=== PATIENT | male | born 1975 | race Hispanic/Latino ===

== ENCOUNTER 2020-04-28 08:00 | Outpatient (CLI) | payer BC ==
--- NOTE | 2020-04-28 10:18 | CT ---
CT ABDOMEN WITH CONTRAST CT PELVIS WITH CONTRAST: DATE: 04/28/2020 TIME: 0824 HOURS HISTORY: 45-year-old male with left upper quadrant abdominal pain for 2 months. COMPARISON: 12/28/2017. TECHNIQUE: IV injection of iodinated contrast media: administered Oral contrast media: administered FINDINGS: Small umbilical hernia containing a very short segment of small bowel. No associated fat stranding. P reviously, this was only a fat-containing hernia. Bilateral kidneys, abdominal aorta, urinary bladder, adrenals, pancreas, spleen, and liver are normal . No appendicitis. No colonic diverticulitis, small bowel dilation, ascites, or pneumoperitoneum. Gloria g bases are grossly clear. 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 Other than the small umbi lical hernia, no interval change. IMPRESSION: 1. No acute pathology. 2. Small umbilical hernia. 3. Lower lumbar spondylosis. 4. Status post cholecystectomy. 5. Otherwise negative. MAGEN Donald POS: [facility]LENA
[2020-04-28] MEDS ORDERED: Iopamidol 370 76% 100 ML VIAL ONE (16:13)
== END 2020-04-28 08:01 | disposition home or self-care (01) ==
LOC: BICCT 08:00
PROVIDERS: ATTEND Physician Assistant Medical
DX: K21.9 Gastro-esophageal reflux disease without esophagitis (principal); R10.12 Left upper quadrant pain; R19.4 Change in bowel habit; K42.9 Umbilical hernia without obstruction or gangrene; M47.816 Spondylosis without myelopathy or radiculopathy, lumbar region; Z90.49 Acquired absence of other specified parts of digestive tract; Z83.71 Family history of colonic polyps
CPT/HCPCS: 74177; Q9967